=== PATIENT | male | born 1940 | race African-American/Black ===

== ENCOUNTER 2021-06-14 14:28 | Inpatient (IN) | payer MEDICARE, OTHER ==
[~2021-06-14] VITALS: Ht 175.3 cm; Wt 40.0 kg
[2021-06-14] MEDS ORDERED: MAGNESIUM 2 G PREMIX 50 ML IV ONE (14:45)
[2021-06-14 15:31] LABS: HEMATOCRIT. 41.4 % (42.0-52.0); HEMOGLOBIN. 13.6 g/dL (14.0-18.0); MEAN CORPUSCULAR HEMOGLOBIN 32.8 pg (28.0-32.0); MEAN CORPUSCULAR VOLUME 99.8 fL (80.0-94.0); MEAN PLATELET VOLUME 9.1 fl (7.4-10.4); PLATELET 151 x1000/uL (130-400); RED BLOOD CELL COUNT 4.15 mill/uL (4.7-6.1); RED CELL DISTRIBUTION WIDTH 15.6 % (11.6-14.6)
[2021-06-14 15:39] LABS: CHLORIDE 86 mEq/L (98-107)
[2021-06-14 15:43] LABS: ETHANOL BLOOD 23 mg/dL
[2021-06-14] MEDS ORDERED: DOXYCYCLINE HYCLATE 100MG CAPSULE PO ONE (16:15)
[2021-06-14] MEDS ORDERED: CEFTRIAXONE 1 G PREMIX 50 ML IV ONE (16:15)
[2021-06-14] MEDS ORDERED: SODIUM CHLORIDE 0.9% 1,000 ML IV ONE (16:15)
[2021-06-14 16:32] LABS: PLATELET ESTIMATE NORMAL
[2021-06-14 17:04] LABS: CLARITY URINE CLEAR (CLEAR); COLOR URINE YELLOW (YELLOW); KETONES URINE NEGATIVE (NEGATIVE); LEUKOCYTE ESTERASE URINE NEGATIVE (NEGATIVE); NITRITE URINE NEGATIVE (NEGATIVE); OCCULT BLOOD URINE NEGATIVE (NEGATIVE); PH URINE 5.5 (4.5-8.0); PROTEIN URINE TRACE (NEGATIVE); SPECIFIC GRAVITY URINE 1.013 (1.005-1.030)
[2021-06-14 17:57] VITALS: BP 115/62
[2021-06-14 18:00] VITALS: BP 115/62
[2021-06-14] MEDS ORDERED: ACETAMINOPHEN 325MG TABLET PO PRN (19:30)
[2021-06-14 20:00] VITALS: BP 104/58
[2021-06-14] MEDS: SODIUM CHLORIDE 0.9% 1,000 ML IV SCH (21:18)
[2021-06-15] VITALS: BP 121/72
[2021-06-15 04:00] VITALS: BP 107/61
[2021-06-15 08:00] VITALS: BP 115/84
[2021-06-15 08:58] LABS: HEMATOCRIT. 41.6 % (42.0-52.0); HEMOGLOBIN. 13.8 g/dL (14.0-18.0); MEAN CORPUSCULAR HEMOGLOBIN 32.9 pg (28.0-32.0); MEAN CORPUSCULAR VOLUME 98.7 fL (80.0-94.0); MEAN PLATELET VOLUME 8.5 fl (7.4-10.4); PLATELET 141 x1000/uL (130-400); RED BLOOD CELL COUNT 4.21 mill/uL (4.7-6.1); RED CELL DISTRIBUTION WIDTH 15.3 % (11.6-14.6)
[2021-06-15] MEDS: ENOXAPARIN 40MG/0.4ML SYR SUBCUT SCH (09:00)
[2021-06-15 09:03] LABS: CHLORIDE 88 mEq/L (98-107)
[2021-06-15] MEDS ORDERED: POTASSIUM CHLORIDE 20MEQ TABLET SR PO NR (09:45)
[2021-06-15 12:00] VITALS: BP 113/61
[2021-06-15] MEDS: KCL 20MEQ/100ML PREMIX 100 ML IV SCH ×2 (13:12→15:00)
[2021-06-15] MEDS: SODIUM CHLORIDE 0.9% 1,000 ML IV SCH (13:18)
[2021-06-15 13:42] LABS: PLATELET ESTIMATE NORMAL
[2021-06-15 16:00] VITALS: BP 120/74
[2021-06-15] MEDS ORDERED: POTASSIUM CHLORIDE 20MEQ/PACKET PO SCH (16:00)
[2021-06-15 20:00] VITALS: BP 137/67
[2021-06-15] MEDS ORDERED: POTASSIUM CHLORIDE 20MEQ/PACKET PO NR (23:30)
[2021-06-15] MEDS: ONDANSETRON HCL 4MG/2ML INJ IV PRN (23:58)
[2021-06-16] VITALS: BP 120/68
[2021-06-16] MEDS: ONDANSETRON HCL 4MG/2ML INJ IV PRN (00:23)
[2021-06-16 04:00] VITALS: BP 125/80
[2021-06-16] MEDS: SODIUM CHLORIDE 0.9% 1,000 ML IV SCH ×2 (04:50→21:30)
[2021-06-16 07:39] LABS: HEMATOCRIT. 42.7 % (42.0-52.0); HEMOGLOBIN. 14.4 g/dL (14.0-18.0); MEAN CORPUSCULAR HEMOGLOBIN 33.8 pg (28.0-32.0); MEAN CORPUSCULAR VOLUME 100.3 fL (80.0-94.0); MEAN PLATELET VOLUME 8.9 fl (7.4-10.4); PLATELET 168 x1000/uL (130-400); RED BLOOD CELL COUNT 4.25 mill/uL (4.7-6.1); RED CELL DISTRIBUTION WIDTH 15.7 % (11.6-14.6)
[2021-06-16 07:52] LABS: CHLORIDE 94 mEq/L (98-107)
[2021-06-16 08:00] VITALS: BP 121/69
[2021-06-16] MEDS: ENOXAPARIN 40MG/0.4ML SYR SUBCUT SCH (09:00)
[2021-06-16] MEDS: POTASSIUM CHLORIDE 20MEQ/PACKET PO SCH ×3 (11:40→21:53)
[2021-06-16 12:00] VITALS: BP 132/67
[2021-06-16 14:25] LABS: PLATELET ESTIMATE NORMAL
[2021-06-16 16:00] VITALS: BP 117/79
[2021-06-16 20:00] VITALS: BP 101/71
[2021-06-17] VITALS: BP 104/69
[2021-06-17 04:00] VITALS: BP 153/89
[2021-06-17] MEDS: POTASSIUM CHLORIDE 20MEQ/PACKET PO SCH (06:02)
[2021-06-17 08:00] VITALS: BP 103/73
[2021-06-17] MEDS ORDERED: ENOXAPARIN 30MG/0.3ML SYR SUBCUT SCH (09:00)
[2021-06-17 10:51] LABS: CHLORIDE 96 mEq/L (98-107)
== END 2021-06-17 11:44 | disposition short-term general hospital (02) | DRG 641 ==
LOC: ER 14:43 → 8WST 16:10 → ENRESERV 16:30
PROVIDERS: ADMIT Family Medicine; ATTEND Family Medicine
DX: E86.0 Dehydration (principal); G90.9 Disorder of the autonomic nervous system, unspecified; E87.2 Acidosis; I10 Essential (primary) hypertension; E87.6 Hypokalemia; D64.9 Anemia, unspecified
CPT/HCPCS: 36415; 71045; 80048; 80053; 80320; 81003; 83605; 83880; 84484; 85025; 93005; 93306; 97161; 97166; 99291; J0696; J2405; J3475; J3480; J7030; G0480